=== PATIENT | female | born 1945 | race Caucasian/White ===

== ENCOUNTER 2017-07-05 09:37 | Inpatient (IN) | payer MEDICARE, MEDICAID ==
[~2017-07-05] VITALS: Ht 160 cm; Wt 107.2 kg
[2017-07-05] VITALS (7 sets, daily range): BP systolic 143–187; BP diastolic 82–110; PULSE 83–92; RESP 12–24; O2SAT 95–99
[~2017-07-05 09:37] MED LIST: AMIT25TA26 PO; AMIT25TA9 PO; ATRINH IH; BACL20TA PO; CETI10TA PO; CLAR10T PO; CMBV14.7IN INH; Calcium; FLUOXETINE PO; FURO20TA PO; LISI10TA9 PO; MELA1TAB28 PO; Multi Vitamin PO; NOR10 PO; OMPR20CCR PO; POTA10TA23 PO; VIT A PO; Vitamin D3; [UNRECOGNIZED DRUG - CODE] IH; [UNRECOGNIZED DRUG - OTHER] PO
--- NOTE | 2017-07-05 09:54 | ED.REPORT ---
HPI-Altered Mental Status Date of Service Jul 05, 2017 ED Provider: Timmy Paulino MD The pt is a 72 y/o female with a hx of HTN, COPD and neuropathy who presents to the ED via EMS complaining of confusion, onset this morning. Her caregiver found the pt sliding out of her chair with her pants down to her ankles. She had urinary incontinence, was confused, disoriented and had repetitive speech. The caregiver states the pt was normal yesterday and did not have a fever, cough , diarrhea, or vomiting. Nursing Notes Stated Complaint: CONFUSED Chief Complaint: Neuro Symptoms/ Deficits Nursing Notes Reviewed: Yes Allergies: Coded Allergies: Penicillins (Verified Allergy, Unknown, 12/13/13) Sulfa (Sulfonamide Antibiotics) (Verified Allergy, Unknown, 12/13/13) alendronate sodium (Verified Allergy, Unknown, 12/13/13) betamethasone (Verified Allergy, Unknown, 12/13/13) STATES ALLERGY TO QVAR codeine (Verified Adverse Reaction, Unknown, JITTERY,NON-EFFECTIVE FOR PAIN RELIEF, 08/04/10) Scheduled ([Multi Vitamin]) 1 TAB PO DAILY Albut/Ipratropium-Expunged Drug, Do Not Renew (Combivent-Expunged Drug, Do Not Renew!) 1 Puff Inhaler 2 PUFFS INH QID as needed Calcium Carbonate/Vitamin D3 (Calcium + Vitamin D Tablet) 1 Each Tablet 1 EACH PO DAILY Ipratropium-Expunged Drug, Do Not Renew! (Ipratropium-Expunged Drug, Do Not Renew!) 200 Puff/12.9 Gm Inhaler 2 PUFF IH QID SHAKE WELL Lisinopril (Lisinopril) 20 Mg Tablet 30 MG PO DAILY Meloxicam (Meloxicam) 7.5 Mg Tablet 11.25 MG PO DAILY Nortriptyline (Nortriptyline) 25 Mg Capsule 25 MG PO MORNING Nortriptyline (Nortriptyline) 50 Mg Capsule 50 MG PO HS Nortriptyline (Nortriptyline) 25 Mg Capsule 25 MG PO QPM Potassium Chloride ER (Potassium Chloride ER) 20 Meq Tablet.er 20 MEQ PO MORNING TAKE WITH FOOD Potassium Chloride ER (Klor-Con 10) 10 Meq Tablet 10 MEQ PO HS Torsemide (Torsemide) 20 Mg Tablet 20 MG PO DAILY Vit B Comp/C/FA/Iron/Vit E (Vitamin B Complex Tablet) 1 Each Tablet 1 EACH PO DAILY Scheduled PRN Albuterol-Expunged Drug, Do Not Renew! (Albuterol-Expunged Drug, Do Not Renew!) 60 Puff/8 Gm Inhaler 2 PUFF IH Q4-6H PRN PRN For Congestion Baclofen-Expunged Drug, Do Not Renew! 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 Arrived By: Ambulance Sudden in Onset?: Yes Onset Occurred: 1 - 4 hours ago Symptom Duration: Since onset Severity: Current: No pain currently Severity: Maximum: No pain Recent Healthcare: No recent doctor visit Past Medical History Past Medical History Reports: Asthma, COPD, Hypertension Past Surgical History Reports: Hysterectomy, Tonsillectomy Smoking History Smoker Current Status UNK Social History Alcohol Use: 1-3 per week Drug Use: Denies drug use Other Social History: Lives alone Ambulatory Status Walker Review of Systems Reports: disoriented Reports: repetitive speech Constitutional: Denies: Fever Respiratory: Denies: Non-productive cough GI: Denies: Diarrhea, Vomiting Neurologic: Reports: Confusion Complete sys rev & neg: except as marked. Female: Reports: Incontinence Physical Exam Initial Vital Signs Vital Signs (First) Date Time Temp Pulse Resp B/P Pulse Ox O2 Delivery O2 Flow Rate FiO2 07/05/17 09:49 36.6 92 24 187/103 99 Room Air Initial VS: Reviewed Abdomen / GI: Soft, Non-tender, No guarding, No rebound, No distention Extremities: Vascular intact, Neuro intact, No swelling, No tenderness Skin: Warm, Dry, No cyanosis General/Constitutional: Awake, Cooperative Alertness: Positive: Confused Head / Eyes: Atraumatic, Normocephalic, PERRL, EOMI Neck: Atraumatic, Supple, Full range of motion, No swelling, Non-tender Respiratory / Chest: Atraumatic, Breath sounds NL, Breath sounds = bilat, No respiratory distress, No rales, No rhonchi, No wheezing Cardiovascular: Heart rate NL, Regular rhythm, Heart sounds NL, No gallop, No murmurs, No rubs Lower Ext Edema: Positive: Bilateral 2+ Neurologic: No motor deficits, No sensory deficits Mental Status: Positive: Confused, Disoriented to time No facial droop Moving all extremities equally Subjective decreased sensation in left upper extremity. Ankle / Foot: Atraumatic, Full range of motion, No swelling, No erythema, Non- tender, No deformity, Neurologic intact, Vascular intact Well healed scar on the left medial ankle Interpretation & Diagnostics Lab Results Interpretation Result Diagram: 07/05/17 1006 07/05/17 1006 Test 07/05/17 10:06 07/05/17 10:33 07/05/17 15:00 White Blood Count 13.6th/mm3 (3.8-10.1) Red Blood Count 4.26mil/mm3 (3.90-5.20) Hemoglobin 12.3g/dL (12.0-15.6) Hematocrit 35.9% (35.0-46.0) Mean Corpuscular Volume 84.3fL (81-100) Mean Corpuscular Hemoglobin 28.9pg (27.0-35.0) Mean Corpuscular Hemoglobin Concent 34.3% (32.0-37.0) Red Cell Distribution Width 13.8% (12.3-15.4) Platelet Count 406bil/L (150-400) Neutrophils (%) (Auto) 67.7% (40-74) Lymphocytes (%) (Auto) 26.6% (14-46) Monocytes (%) (Auto) 4.9% (4-12) Eosinophils (%) (Auto) 0.3% (0-5) Basophils (%) (Auto) 0.2% (0-3) Sodium Level 129mEq/L (134-144) Potassium Level 3.7mEq/L (3.5-5.2) Chloride Level 89mEq/L (97-108) Carbon Dioxide Level 27mmol/L (18-29) Blood Urea Nitrogen 8mg/dL (8-27) Creatinine 0.75mg/dL (0.57-1.00) Estimat Glomerular Filtration Rate 109mL/min (>59) Glucose Level 108mg/dL (60-99) Calcium Level 9.6mg/dL (8.5-10.1) Magnesium Level 2.1mg/dL (1.6-2.6) Total Bilirubin 0.4mg/dL (0.0-1.2) Aspartate Amino Transf (AST/SGOT) 20U/L (0-50) Alanine Aminotransferase (ALT/SGPT) 24U/L (0-32) Alkaline Phosphatase 114U/L (25-165) Total Protein 8.2g/dL (6.4-8.4) Albumin 5.0g/dL (3.4-5.0) Salicylates Level < 3.0ug/mL (30-250) Acetaminophen Level < 15.0ug/mL Rx (10-25) Alcohols < 10mg/dL (0-10) Urine Color Straw (YELLOW) Urine Appearance Clear (CLEAR,HAZY) Urine pH 7.0 (5.0-8.0) Urine Specific [place] 1.005 (1.003-1.035) Urine Protein Negativemg/dL (NEG,TRACE) Urine Glucose (UA) Negativemg/dL (NEGATIVE) Urine Ketones Negativemg/dL (NEGATIVE) Urine Occult Blood Negative (NEGATIVE) Urine Nitrite Negative (NEGATIVE) Urine Bilirubin Negative (NEGATIVE) Urine Urobilinogen Normalmg/dL (NORMAL) Urine Leukocyte Esterase Negative (NEGATIVE) Urine RBC 0-2/hpf (0-2) Urine WBC 0-5/hpf (0-5) Urine Epithelial Cells Few/hpf (NONE-MOD) Urine Crystals None seen (NONE SEEN) Urine Bacteria None/hpf (NONE-FEW) Urine Hyaline Casts None/lpf (NONE) Urine Granular Casts None seen (NONE SEEN) Urine Waxy Casts None seen (NONE SEEN) Urine Red Blood Cell Casts None seen (NONE SEEN) Urine White Blood Cell Casts None seen (NONE SEEN) Urine Mucus None seen (None Seen) Urine Trichomonas None seen (NONE SEEN) Urine Yeast None (NONE SEEN) Urinalysis Comment None Urine Culture Reflexed Not indicated ECG Interpretation ECG Interpretation: Normal sinus rhythm. Rate 90. Time: 10:03 Interpreted by: ED physician X-Ray Chest Interpretation Chest Xray Interpretation: IMPRESSION: Left basilar atelectasis. Dictated by: Ray Cook M.D. on 07/05/2017 at 10:38 Approved by: Ray Cook M.D. on 07/05/2017 at 10:39 View: Portable, 1 view Interpretation / Wet Read by: Interpret - Radiologist CT Head Interpretation IMPRESSION: 1. No acute intracranial hemorrhage. 2. Left maxillary retention cyst versus mucosal polyp. Dictated by: Matthew Vila M.D. on 07/05/2017 at 9:56 Approved by: Matthew Vila M.D. on 07/05/2017 at 9:59 Study: Head CT no contrast Interpretation / Wet Read by: Interpret - Radiologist Re-Eval/Medical Decision Med Decision/Clinical Course No discrete cause for the acute delirium is yet discovered though the most likely culprit I believe is some sort of occult infection and given the fact that she has the atelectasis on the chest x-ray and the elevated white count I believe that empiric therapy for pneumonia is the most reasonable course at this time. Source of Hx: Old records Re-Evaluation/Progress : Time of Eval: 14:40 Re-Evaluation/Progress Note: Rechecked pt. Discussed lab results, imaging results,diagnosis and plan to admit. Pt understands and agrees with the plan for admission. All questions addressed. 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 I,, personally performed the history,physical exam and medical decision-making;I reviewed and confirmed the accuracy of the information in the transcribed note. Signed by Debora Weir. 07/05/17 copies to: Justa Yeager MD, Kirk H MD Jul 05, 2017 09:54 Gabriella Campbell Jul 05, 2017 10:02
[2017-07-05 10:09] LABS: BASOPHILS % (AUTO) 0.2 % (0-3); EOSINOPHILS % (AUTO) 0.3 % (0-5); MONOCYTES % (AUTO) 4.9 % (4-12); Mean Corpuscular Hemoglobin 28.9 pg (27.0-35.0); Mean Corpuscular Volume 84.3 fL (81-100); NEUTROPHILS % (AUTO) 67.7 % (40-74); Platelet Count 406 bil/L (150-400)
[2017-07-05 10:30] LABS: Magnesium 2.1 mg/dL (1.6-2.6)
--- NOTE | 2017-07-05 10:41 | DRSVH ---
PROCEDURE: X-RAY CHEST ONE VIEW, PORTABLE ([id number]) INDICATIONS: altered Mental status TECHNIQUE: One view of the chest was acquired. COMPARISON: [facility], , CHEST 1VW (PORTABLE), 03/07/2014, 12:19. FINDINGS: Surgical changes and devices: None. Lungs and pleura: Left basilar opacity may be discoid atelectasis. No pleural effusions or pneumotho rax. Mediastinum: Mediastinal contours appear normal. Heart size is normal. Bones and chest wall: No suspicious bony lesions. Overlying soft tissues appear unremarkable. IMPRESSION: Left basilar atelectasis. Dictated by: Ray Cook M.D. on 07/05/2017 at 10:38 Approved by: Ray Cook M.D. on 07/05/2017 at 10:39
[2017-07-05 10:54] LABS: APPEARANCE,URINE CLEAR (CLEAR,HAZY); COLOR,URINE STRAW (YELLOW); OCCULT BLOOD,URINE NEGATIVE (NEGATIVE); UROBILINOGEN,URINE NORMAL (NORMAL)
--- NOTE | 2017-07-05 11:00 | DRSVH ---
PROCEDURE: CT BRAIN WITHOUT CONTRAST ([id number]) INDICATIONS: Altered mental status TECHNIQUE: Noncontrast 4.5 mm thick angled axial sections acquired from the foramen magnum to the vertex, with c oronal reformats. COMPARISON: None. FINDINGS: Image quality: Diagnostic. Prominent motion artifact within the convexity is noted. Repeat imaging through this region was performed. Brain: There is no acute intra-axial or extra-axial hemorrhage. No extra-axial fluid collection is i dentified. There is no midline shift or mass effect. The orbits are grossly unremarkable. No large areas of diffusely decreased attenuation are evident within the brain to suggest diffuse cer ebral edema. No definite parenchymal abnormality is identified. The ventricles and cortical sulci are age-appropriate. Bones: Calvarium and visualized facial bones are grossly intact. Mucous retention cyst versus a par anasal polyp is evident involving the left maxillary sinus. Otherwise, the imaged paranasal sinuses and mastoid air cells are clear. IMPRESSION: 1. No acute intracranial hemorrhage. 2. Left maxillary retention cyst versus mucosal polyp. Dictated by: Matthew Vila M.D. on 07/05/2017 at 9:56 Approved by: Matthew Vila M.D. on 07/05/2017 at 9:59
[2017-07-05] MEDS ORDERED: POTA10CA42 (13:35)
[2017-07-05] MEDS ORDERED: FLUO20CA25 PO (13:35)
[2017-07-05] MEDS ORDERED: POTA20TA16 (13:35)
[2017-07-05] MEDS ORDERED: NORT25CA (13:35)
[2017-07-05] MEDS ORDERED: MELO-259 (13:35)
[2017-07-05] MEDS ORDERED: BACL20TA (13:35)
[2017-07-05] MEDS ORDERED: TORS20TA3 (13:35)
[2017-07-05] MEDS ORDERED: LISI-567 PO (13:35)
[2017-07-05] MEDS ORDERED: RANI150T11 (13:35)
[2017-07-05] MEDS ORDERED: POTA-62 PO (14:08)
[2017-07-05] MEDS ORDERED: MELO-259 PO (14:08)
[2017-07-05] MEDS ORDERED: NORT50CA PO (14:08)
[2017-07-05] MEDS ORDERED: POTA10TA7 PO (14:08)
[2017-07-05] MEDS ORDERED: CALC-140 PO (14:08)
[2017-07-05] MEDS ORDERED: TORS20TA3 PO (14:08)
[2017-07-05] MEDS ORDERED: VIT1TABL83 PO (14:08)
[2017-07-05] MEDS ORDERED: IBUP200C11 PO (14:08)
[2017-07-05] MEDS ORDERED: NORT25CA PO ×2 (14:08)
[2017-07-05] MEDS ORDERED: cefTRIAXone Inj 2,000 MG in Dextrose 5% Minibag Plus 50 ML IV ONE (14:40)
[2017-07-05] MEDS ORDERED: Azithromycin Inj 500 MG in Dextrose 5% 250 ML IV ONE (14:40)
[2017-07-05] MEDS ORDERED: Ondansetron 2 mg/mL 2 mL Inj IVPUSH PRN ×2 (15:15→16:40)
[2017-07-05] MEDS ORDERED: Alum-Mag Hydrox-Simeth 30 mL Suspension PO PRN ×2 (15:15→16:40)
--- NOTE | 2017-07-05 16:05 | NUR ---
Admission Pt arrived on [facility] from ED. Pt is A/Ox3, no complains of pain, SOB or chest discomfort. Pt able to scoot self from gurney to bedside with minimal assistance. IV Abx infusing at this time. Incontinent of bladder. Pt cleaned and brief in place. Pt has 1:1 sitter at bedside possible fall and altered mental status. Oriented to call light, visiting hours, and bathroom.
[2017-07-05] MEDS ORDERED: 0.9% Sodium Chloride 1,000 ML IV SCH (16:36)
[2017-07-05] MEDS ORDERED: [UNRECOGNIZED DRUG - REMARK] PO PRN (16:40)
[2017-07-05] MEDS ORDERED: Polyethylene Glycol (PEG) 17 Gm Powder PO PRN (16:40)
[2017-07-05] MEDS: Calcium Carbonate (Oyster Shell) 500 mg Tablet PO SCH (17:30)
--- NOTE | 2017-07-05 18:26 | PCM.HPMED ---
Subjective Date of Service Jul 05, 2017 Primary Provider: Admitting Physician: Jesus Gil MD Primary Care Physician: Justa Yeager MD Attending Physician: Jesus Gil MD Admit Status: From the Emergency Department, 23-Hour Observation Chief Complaint: Altered mental status/2 hrs Lightheadedness/2hrs History of Present Illness: 72-year-old lady with past medical history of depression, hypertension,GERD, obesity was brought in by EMS due to brief altered mental status. Patient was found by her caregiver 9am slammed over the floor. She called 911 and was brought in to ED. patient reportedly was alert but slightly confused. Was able to answer her dog is okay. Patient now alert and oriented x3 . She states she had felt lightheadedness this morning and remembers falling down. She states she did not lose consciousness fully . She remembers her caregiver coming to her place. She denies recent flareup. She denies any urinary or bowel habit change. Denies fever. Denies cough ED course : Unremarkable exam and vitals. wbc 13.6. Sodium 129. Otherwise unremarkable. CT brain negative. Review of Systems: Comprehensive review of systems performed, pertinent positives and negatives included in history of present illness Allergies Coded Allergies: Penicillins (Verified Allergy, Unknown, 12/13/13) Sulfa (Sulfonamide Antibiotics) (Verified Allergy, Unknown, 12/13/13) alendronate sodium (Verified Allergy, Unknown, 12/13/13) betamethasone (Verified Allergy, Unknown, 12/13/13) STATES ALLERGY TO QVAR codeine (Verified Adverse Reaction, Unknown, JITTERY,NON-EFFECTIVE FOR PAIN RELIEF, 08/04/10) Home Medications [Multi Vitamin]) 1 TAB PO DAILY Albut/Ipratropium-Expunged Drug, Do Not Renew (Combivent-Expunged Drug, Do Not Renew!) 1 Puff Inhaler 2 PUFFS INH QID as needed Calcium Carbonate/Vitamin D3 (Calcium + Vitamin D Tablet) 1 Each Tablet 1 EACH PO DAILY Ipratropium-Expunged Drug, Do Not Renew! (Ipratropium-Expunged Drug, Do Not Renew!) 200 Puff/12.9 Gm Inhaler 2 PUFF IH QID SHAKE WELL Lisinopril (Lisinopril) 20 Mg Tablet 30 MG PO DAILY Meloxicam (Meloxicam) 7.5 Mg Tablet 11.25 MG PO DAILY Nortriptyline (Nortriptyline) 25 Mg Capsule 25 MG PO MORNING Nortriptyline (Nortriptyline) 50 Mg Capsule 50 MG PO HS Nortriptyline (Nortriptyline) 25 Mg Capsule 25 MG PO QPM Potassium Chloride ER (Potassium Chloride ER) 20 Meq Tablet.er 20 MEQ PO MORNING TAKE WITH FOOD Potassium Chloride ER (Klor-Con 10) 10 Meq Tablet 10 MEQ PO HS Torsemide (Torsemide) 20 Mg Tablet 20 MG PO DAILY Vit B Comp/C/FA/Iron/Vit E (Vitamin B Complex Tablet) 1 Each Tablet 1 EACH PO DAILY Scheduled PRN Albuterol-Expunged Drug, Do Not Renew! (Albuterol-Expunged Drug, Do Not Renew!) 60 Puff/8 Gm Inhaler 2 PUFF IH Q4-6H PRN PRN For Congestion Baclofen-Expunged Drug, Do Not Renew! (Baclofen-Expunged Drug, Do Not Renew!) 20 Mg Tablet 20 MG PO QID PRN PRN For Spasm Ibuprofen (Advil) 200 Mg Capsule 200 MG PO Q4H PRN PRN For Pain PMH depression, hypertension, GERD, obesity Current smoker Surgical History Tonsillectomy Hysterectomy Family History Reviewed and unremarkable. Thai ancestors Social History Hx Alcohol Use: Yes (1x/week) Hx Substance Use: No Hx Tobacco Use: Yes (1/2 pack/day, 96 pack year) Smoking Status: Smoker Current Status UNK Exam Vital Signs Vital Sign - Last Date Time Temp Pulse Resp B/P Pulse Ox O2 Delivery O2 Flow Rate FiO2 07/05/17 16:10 36.4 84 18 158/98 95 Room Air Exam Gen. patient is lying comfortably in hospital bed HEENT: Head is normocephalic atraumatic, Pupils equal and reactive, extraocular movements intact, Lungs clear to auscultation bilaterally Heart regular rate and rhythm without murmurs gallops or rubs Abdomen soft nontender without hepatosplenomegaly Extremities pulses are present dorsalis pedis posterior tibialis and radial. tSkin is warm and dry there are no rashes, Psych alert and oriented to person place and time Neuro cranial nerves II through XII are grossly intact Lymph: There is no lymphadenopathy appreciated in the cervical supra infraclavicular regions : no valerio Lab and Diagnostics Result Diagram: 07/05/17 1006 07/05/17 1006 X-Rays, CTs and MRIs PROCEDURE: CT BRAIN WITHOUT CONTRAST ([id number]) INDICATIONS: Altered mental status TECHNIQUE: Noncontrast 4.5 mm thick angled axial sections acquired from the foramen magnum to the vertex, with coronal reformats. COMPARISON: None. FINDINGS: Image quality: Diagnostic. Prominent motion artifact within the convexity is noted. Repeat imaging through this region was performed. Brain: There is no acute intra-axial or extra-axial hemorrhage. No extra-axial fluid collection is identified. There is no midline shift or mass effect. The orbits are grossly unremarkable. No large areas of diffusely decreased attenuation are evident within the brain to suggest diffuse cerebral edema. No definite parenchymal abnormality is identified. The ventricles and cortical sulci are age-appropriate. Bones: Calvarium and visualized facial bones are grossly intact. Mucous retention cyst versus a paranasal polyp is evident involving the left maxillary sinus. Otherwise, the imaged paranasal sinuses and mastoid air cells are clear. IMPRESSION: 1. No acute intracranial hemorrhage. 2. Left maxillary retention cyst versus mucosal polyp. Dictated by: aMtthew Vila M.D. on 07/05/2017 at 9:56 Assessment & Plan 72-year-old lady with past medical history of depression, hypertension,GERD, obesity was brought in by EMS due to brief altered mental status. # Altered mental status, acute, ,poa, resolved -Due to TIA vs symptomatic hyponatremia vs syncope due to dehydration due to diuretics -hold SSRI -NS at 100ml/h -MR stroke protocol,echo, -telemetry,PT/OT -Urinalysis unremarkable # symptomatic hyponatremia, chronicity unknown -due to SSRI vs diuretics -Hold fluoxetine and torsemide -urine studies ordered #Depression, stable #Hypertension, stable #Obesity, stable inpatient Full code per patient Pain Evaluation: Adequate Pain Control Resuscitation Status: CPR: Attempt Resuscitation copies to: Justa Yeager MD, Melaku MD Jul 05, 2017 18:26
--- NOTE | 2017-07-05 21:13 | NUR ---
off unit: off unit for MRI
--- NOTE | 2017-07-05 21:54 | DRSVH ---
PROCEDURE: MRI BRAIN WITHOUT CONTRAST ([id number]) INDICATIONS: TIA TECHNIQUE: Non-contrast axial T1 spin echo, axial T2 fast spin echo, sagittal and axial FLAIR, coronal T2 fast s pin echo, axial gradient echo, axial diffusion and ADC through the brain. COMPARISON: [facility], CT, CT BRAIN WO CON, 07/05/2017, 10:34. FINDINGS: Image quality: Motion is present on multiple sequences, limiting areas of fine detail evaluation. CSF spaces: Ventricles appear symmetric in size and shape. Basal cisterns are patent. No extra-axi al fluid collections. Brain: No intracranial bleeds or mass effects. There is cerebral volume loss for age. There are pe riventricular and deep white matter chronic small vessel ischemic changes. Brainstem appears normal. Diffusion-weighted images show no acute ischemic insults. No chronic ischemic insults. Normal int ravascular flow voids are present. Skull and face: Calvarial bone marrow is normal in signal. Orbits are normal. Sinuses: Sinuses demonstrate a prominent left maxillary sinus mucus retention cysts. Mild to moderat e scattered mucosal thickening is present within the visualized remaining sinuses. IMPRESSION: 1. No acute intracranial process. 2. Moderate atrophy and chronic microvascular ischemic changes. Dictated by: Melonie Dunn M.D. on 07/05/2017 at 21:51 Approved by: Melonie Dunn M.D. on 07/05/2017 at 21:52
[2017-07-05] MEDS ORDERED: BACL20TA PO (22:05)
--- NOTE | 2017-07-05 22:12 | DRSVH ---
PROCEDURE: MRA ANGIOGRAM HEAD WITHOUT CONTRAST ([id number]) INDICATIONS: TIA TECHNIQUE: Noncontrast axial 3-D [id number] MR angiogram, with 3-dimensional maximum intensity projection (M IP) reformats of the internal carotid arteries and posterior circulation then performed. COMPARISON: None. FINDINGS: Image quality: Excellent. Anterior circulation: Intracranial internal carotid arteries demonstrate normal size and intralumina l flow signal. The flow within the paired anterior cerebral arteries is normal and symmetric. The f low within the middle cerebral arteries is normal and symmetric. The anterior communicating artery i s seen. No stenoses, occlusions, or aneurysms. Posterior circulation: Visualized portions of the vertebral arteries demonstrate normal caliber, and join to form a normal appearing basilar artery. The flow within the posterior cerebral arteries is normal and symmetric. No stenoses, occlusions, or aneurysms. IMPRESSION: 1. No areas of hemodynamically significant stenosis, vascular occlusion or aneurysmal dilation within the anterior circulation. 2. No areas of hemodynamically significant stenosis, vascular occlusion or aneurysmal dilation within the posterior circulation. Dictated by: Melonie Dunn M.D. on 07/05/2017 at 22:09 Approved by: Melonie Dunn M.D. on 07/05/2017 at 22:10
[2017-07-06 05:13] VITALS: BP 147/87; PULSE 86; RESP 14; O2SAT 95
[2017-07-06 06:12] VITALS: PULSE 86
[2017-07-06 06:13] LABS: BASOPHILS % (AUTO) 0.2 % (0-3); EOSINOPHILS % (AUTO) 2.3 % (0-5); MONOCYTES % (AUTO) 6.7 % (4-12); Mean Corpuscular Hemoglobin 28.4 pg (27.0-35.0); NEUTROPHILS % (AUTO) 54.4 % (40-74); Platelet Count 327 bil/L (150-400)
[2017-07-06 06:29] LABS: Magnesium 2.1 mg/dL (1.6-2.6)
[2017-07-06] MEDS ORDERED: CALC500T9 PO (07:53)
[2017-07-06] MEDS ORDERED: ALBU8.5H2 INHALATION (07:54)
[2017-07-06] MEDS ORDERED: MULT-1065 PO (07:54)
[2017-07-06 08:00] VITALS: PULSE 90
[2017-07-06] MEDS: Calcium Carbonate (Oyster Shell) 500 mg Tablet PO SCH ×3 (08:36→16:45)
[2017-07-06] MEDS: Multivit-Miner-Folic Acid-Iron Tablet PO SCH (08:37)
[2017-07-06 09:13] LABS: OSMOLALITY, URINE 219 mOs/kH2O (250-1200)
--- NOTE | 2017-07-06 12:14 | NUR ---
Flu vaccine Flu vaccine offered, pt respectfully declined. sts "I was sick for 2 weeks last time I got it. I want to get better and out of here before I get it this year" Encouraged pt to complete once she is out of the hospital, pt verbally agreed. Call light in reach,
--- NOTE | 2017-07-06 12:19 | PCM.PNMED ---
Subjective Date of Service Jul 06, 2017 Subjective Alert and oriented 3. No lightheadedness. Sodium improving. Exam Vital Signs Vital Sign - Last Date Time Temp Pulse Resp B/P Pulse Ox O2 Delivery O2 Flow Rate FiO2 07/06/17 08:00 90 07/06/17 05:13 36.4 14 147/87 95 Room Air Intake and Output 07/05/17 07/05/17 07/06/17 Cumulative From/Thru 15:00 23:00 07:00 07/05/17 09:49 - 07/06/17 06:39 Intake Total 300 ml 1036 ml 1336 ml Output Total 350 ml 700 ml 1050 ml Balance -50 ml 336 ml 286 ml Intake Oral 300 ml 1036 ml 1336 ml Output Urine Total 350 ml 700 ml 1050 ml # Bowel Movements 0 0 Exam Gen. patient is lying comfortably in hospital bed HEENT: Head is normocephalic atraumatic, Pupils equal and reactive, extraocular movements intact, Lungs clear to auscultation bilaterally Heart regular rate and rhythm without murmurs gallops or rubs Abdomen soft nontender without hepatosplenomegaly Extremities pulses are present dorsalis pedis posterior tibialis and radial. tSkin is warm and dry there are no rashes, Psych alert and oriented to person place and time Neuro cranial nerves II through XII are grossly intact Lymph: There is no lymphadenopathy appreciated in the cervical supra infraclavicular regions : no valerio IVs and Medications Medications Reviewed: Medications were reviewed in detail Lab and Diagnostics Result Diagram: 07/06/17 0510 07/06/17 0510 X-Rays, CTs and MRIs PROCEDURE: CT BRAIN WITHOUT CONTRAST ([id number]) INDICATIONS: Altered mental status IMPRESSION: 1. No acute intracranial hemorrhage. 2. Left maxillary retention cyst versus mucosal polyp. Dictated by: Matthew Vila M.D. on 07/05/2017 at 9:56 PROCEDURE: MRI BRAIN WITHOUT CONTRAST ([id number]) INDICATIONS: TIA IMPRESSION: 1. No acute intracranial process. 2. Moderate atrophy and chronic microvascular ischemic changes. Dictated by: Melonie Dunn M.D. on 07/05/2017 at 21:51 PROCEDURE: MRA ANGIOGRAM HEAD WITHOUT CONTRAST ([id number]) INDICATIONS: TIA IMPRESSION: 1. No areas of hemodynamically significant stenosis, vascular occlusion or aneurysmal dilation within the anterior circulation. 2. No areas of hemodynamically significant stenosis, vascular occlusion or aneurysmal dilation within the posterior circulation. Dictated by: Melonie Dunn M.D. on 07/05/2017 at 22:09 Cardiac Echo Impressions The left ventricle is normal in size.The ejection fraction is estimated to be 65-70%. There is no LV thrombus. The right ventricle is normal in size and function. There is mild mitral regurgitation. Compared to the prior echo study, there has been an increase in the severity of mitral regurgitation. There is mild tricuspid regurgitation. Compared to the prior echo exam, there has been no change in TR severity. The right ventricular systolic pressure is estimated at 33 mmHg assuming a right atrial pressure of 8 mm Hg. The aortic arch not well visualized. Assessment & Plan 72-year-old lady with past medical history of depression, hypertension,GERD, obesity was brought in by EMS due to brief altered mental status. # Altered mental status, acute, ,poa, resolved -Due to TIA vs symptomatic hyponatremia vs syncope due to dehydration due to diuretics.TIA unlikely -Initial Na 129, improved to 132 today. -hold SSRI and torsemide -Patient has been taking fluoxetine for 2 years and torsemide for 1 year. Patient not sure of indication for torsemide. No history of CHF per patient.Echo unremarkable with EF 65-70%. Patient already on nortriptyline for depression. Discontinue fluoxetine and torsemide for now.moreover combination of fluoxetine and nortriptyline may cause significant QT prolongation and dysrhythmia per pharmacist -Treated with NS at 100ml/h -MR stroke protocol unremarkable -telemetry,PT/OT -Urinalysis unremarkable -Started aspirin 81 mg daily # symptomatic hyponatremia, chronicity unknown -due to SSRI vs diuretics -Discontinued fluoxetine and torsemide. #Depression, stable -Continue nortriptyline. Discontinued fluoxetine. #Hypertension, stable -Continue lisinopril. Discontinue torsemide and kcl #Obesity, stable inpatient Full code per patient Discharge tomorrow if continues to improve Resuscitation Status: CPR: Attempt Resuscitation Jesus Gil MD Jul 06, 2017 12:19
[2017-07-06 12:24] VITALS: BP 135/75; PULSE 76; RESP 16; O2SAT 94
--- NOTE | 2017-07-06 12:27 | DRSVH ---
[facility] [address] [facility] [place] [address] Echocardiogram Report Name: SACHIN GE TStudy Date: 0 07/06/2017Height: 63 in Hospital Exam Location: [facility] Weight: 236 lb Gender: Female BSA: 2.1 m2 : 1945 Age: 72 yrs BP: 147/87 mmHg Reason For Study: TIA Ordering Physician: Obdulio Garduno Performed By: Jon Hardin Referring Physician: Justa Yeager Interpretation Summary The left ventricle is normal in size.The ejection fraction is estimated to be 65-70%. There is no LV thrombus. The right ventricle is normal in size and function. There is mild mitral regurgitation. Compared to the prior echo study, there has been an increase in the severity of mitral regurgitation. There is mild tricuspid regurgitation. Compared to the prior echo exam, there has been no change in TR severity. The right ventricular systolic pressure is estimated at 33 mmHg assuming a right atrial pressure of 8 mm Hg. The aortic arch not well visualized. Procedure: A two-dimensional transthoracic echocardiogram with color flow and Doppler was performed. The study quality was technically adequate. Comparison is made with the echocardiogram of 08/25/16. The patient was in normal sinus rhythm during the exam. Left Ventricle: The left ventricle is normal in size. Proximal septal thickening is noted. There is no echo evidence for significant left ventricular outflow tract obstruction. There is no thrombus. The ejection fraction is estimated to be 65-70%. There are no focal wall motion abnormalities. Assessment of diastolic parameters indicates a relaxation abnormality of the left ventricle, consistent with normal filling pressures. Right Ventricle: The right ventricle is normal in size and function. Atria: The left atrium is moderately dilated. The left atrium has significantly increased in size since the prior echo exam. Right atrial size is normal. A prominent eustachian valve is noted. The interatrial septum is intact with no evidence for an atrial septal defect. Lipomatous hypertrophy of the interatrial septum is noted. Mitral Valve: There is mild mitral annular calcification. The mitral valve leaflets are slightly calcified. There is mild mitral regurgitation. Compared to the prior echo study, there has been an increase in the severity of mitral regurgitation. Aortic Valve: The aortic valve is trileaflet. The aortic valve opens well. There is no aortic valve stenosis. No aortic regurgitation is present. Tricuspid Valve: The tricuspid valve is normal. There is mild tricuspid regurgitation. The right ventricular systolic pressure is estimated at 33 mmHg assuming a right atrial pressure of 8 mm Hg. Compared to the prior echo exam, there has been no change in TR severity. Pulmonic Valve: The pulmonic valve is normal in structure and function. There is trace pulmonic regurgitation. Great Vessels: The aortic root is normal size. The ascending aorta is mildly enlarged. The aortic arch not well visualized. The pulmonary artery is normal size. The IVC is of normal diameter and collapses less than 50% with a sniff. This suggests a right atrial pressure of 8 mm Hg. Pericardium/ Pleura There is no pericardial effusion. There is no pleural effusion. MMode/2D Measurements & Calculations LVIDd: 5.3 cm LA dimension: 4.2 cm LVIDs: 2.8 cm FS: 46.2 % LA A2 area: 26.7 cm EPSS: 0.83 cm LA A4 area: 25.4 cm IVSd: 1.2 cm LA length (vol): 6.0 cm LVPWd: 1.1 cm LA vol: 95.1 ml LA vol index: 45.8 ml/m IVC diam: 2.1 cm RA long axis: 4.8 cm Ao root diam: 3.4 cm RA area: 16.8 cm Aortic Jxn: 2.5 cm RA vol: 49.7 ml asc Aorta Diam: 3.7 cm RA : 24.0 ml/m2 LV harrison. diameter/BSA (cm/m^2): 2.5 LV sys. diameter/BSA (cm/m^2): 1.4 Doppler Measurements & Calculations Ao V2 max: 172.8 cm/sec MV E max zackary: 117.9 cm/sec Ao max P.9 mmHg MV A max zackary: 1.8 cm/sec Ao mean P.0 mmHg MV E/A: 66.4 TR max zackary: 248.4 cm/sec Med Peak E' Zackary: 7.8 cm/sec TR max P.7 mmHg E/E' med: 15.0 PA V2 max: 104.3 cm/sec PA mean P.6 mmHg PA Accel Time: 0.11 sec MV dec time: 0.11 sec Ao V2 mean: 127.5 cm/sec Ao V2 VTI: 33.9 cm PA V2 mean: 78.4 cm/sec PA pr(Accel): 31.6 mmHg Reading Physician:PM
[2017-07-06 13:31] LABS: APPEARANCE,URINE HAZY (CLEAR,HAZY); COLOR,URINE STRAW (YELLOW); OCCULT BLOOD,URINE NEGATIVE (NEGATIVE); UROBILINOGEN,URINE NORMAL (NORMAL)
--- NOTE | 2017-07-06 15:55 | NUR ---
Social Work-initial assessment/multidisciplinary rounds: Data:See initial assessment. Pt is a 72 y/o male who was admitted on 07/05/17 for acute delirium per H&P. Pt's insurance is [facility] and [facility] and PCP is CHELE Deluna. EMR reviewed. Pt's readmission score is 4-high risk. GENIE met with pt at bedside to discuss discharge planning, SW role explained. Pt is alert and oriented x3. Pt resides at home alone in a mobile home with 4 steps to enter where she remains independent with basic ADls. Pt does not drive and uses a fww when out in the community. Pt has no HH history, but has been to [facility] before. Pt has no longterm care insurance or VA benefits. SW discussed DPOA/advanced directive paperwork, pt has completed this, SW encouraged a copy to be brought in. Pt has [employer]AD[employer] caregivers 4 days a week and her CM is Dania Ramirez, updated clinicals faxed. Pt states her friend Ivette [phone] will likely provide transport home. SW provided pt with discharge planning checklist and encouraged pt to call with any questions, phone number provided. No MD orders have been received. SW will continue to follow. Assessment:Pt who has caregivers at home. Plan:Anticipate to discharge home when medically stable via POV. Pt has JADEN caregivers at home. No MD orders have been received. GENIE will continue to follow. ROB Almeida Addendum: 07/06/17 at 1605 by ADRIEL CHAVARRIA Amended: Links added.
[2017-07-06 16:43] VITALS: BP 145/92; PULSE 94; RESP 17; O2SAT 96
--- NOTE | 2017-07-06 17:37 | NUR ---
Activity Pt has been 1 per assist to BR, encouraged to get up to chair for meals. Pt has been up to the chair for dinner. Pt encouraged to continue to contact staff for assistance when getting out of bed. Educated about importance of activity with regards to circulation and respiratory function. Pt verbalizes understanding, states will try to be up for all meals. Call light in reach, will continue to monitor
[2017-07-06 21:01] VITALS: BP 175/95; PULSE 91; RESP 16; O2SAT 98
[2017-07-07 00:51] VITALS: BP 126/83; PULSE 95; RESP 16; O2SAT 95
[2017-07-07 04:56] VITALS: BP 135/90; PULSE 102; RESP 16; O2SAT 97
[2017-07-07 05:11] VITALS: PULSE 94
[2017-07-07 08:00] VITALS: PULSE 65
[2017-07-07] MEDS: Calcium Carbonate (Oyster Shell) 500 mg Tablet PO SCH ×2 (08:34→11:49)
[2017-07-07] MEDS: Multivit-Miner-Folic Acid-Iron Tablet PO SCH (08:35)
[2017-07-07 09:01] VITALS: PULSE 97
[2017-07-07 09:21] VITALS: BP 153/87; PULSE 101; RESP 16; O2SAT 97
--- NOTE | 2017-07-07 10:48 | PCM.DIMED ---
Discharge Instructions Date of Service Jul 07, 2017 Dates of Hospitalization Jul 05, 2017 at 15:29 Discharge Diagnosis Discharge Diagnosis # Altered mental status, acute, ,poa, resolved -Due to syncope due to dehydration due to diuretics. # hyponatremia, chronicity unknown -due to SSRI vs diuretics #Depression, stable #Hypertension, stable #Obesity, stable Diet Discharge Diet: Low fat, Low Sodium Activity Discharge Activity: Limited until seen by PCP Call your provider Call your provider for: Fever or Chills, Shortness of breath, Bleeding, Chest pain, Vomitting, Excessive diarrhea, Weakness (unilateral) Patient Instructions Patient Instructions # You were hospitalized due to altered mental status. It seems you fainted due to dehydration secondary to diuretics. I have stopped your torsemide and potassium supplement. Echocardiogram done did not show any heart failure. you do not need to take torsemide daily. You can take torsemide 20 mg by mouth together with potassium chloride 10meq as needed when you have leg swelling. Follow-up Provider: Justa Yeager MD Follow-up with PCP in: 1 week Jesus Gil MD Jul 07, 2017 10:48
[2017-07-07] MEDS ORDERED: TORS20TA3 PO (11:00)
[2017-07-07] MEDS ORDERED: POTA-62 PO (11:00)
[2017-07-07] MEDS ORDERED: ASPI81TA3 PO (11:00)
--- NOTE | 2017-07-07 14:13 | NUR ---
Discharge Patient discharged at 1355, off unit in wheelchair accompanied by attending DONATIONS ATTENDANT, released in lobby to patient's friend, ambulatory with walker. Vital signs stable, alert and oriented x4, denies pain and in no apparent distress. IV dc'd, all belongings returned and accompany patient. All instructions for diet, activity, medications, prescriptions and follow-up reviewed with patient who reports understanding.
--- NOTE | 2017-07-07 14:48 | NUR ---
Social Work: Multidisciplinary Rounds / Discharge Data & Assessment: EMR reviewed. Patient is on day 2 of hospitalization for acute delirium and CAP per H&P. Patient was discussed in morning rounds. No concerns were noted by MD or staff. Patient has been deemed medically stable for discharge today per MD. Patient will discharge home today. Transportation will be arranged by patient. Patient will have no discharge needs. Plan: Patient will discharge home today. Transportation will be arranged by patient. Patient will have no needs at discharge. ROB Redd
--- NOTE | 2017-07-07 17:08 | PCM.DC.MED ---
Discharge Summary Date of Service Jul 07, 2017 Dates of Hospitalization Date of Hospital Admission Jul 05, 2017 at 15:29 Date of Discharge: Jul 07, 2017 Providers: Admitting Physician: Jesus Hollingsworth MD Primary Care Physician: Justa Yeager MD Attending Physician: Jesus Hollingsworth MD Diagnosis at Time of Discharge Diagnosis at Time of Discharge # Altered mental status, acute, ,poa, resolved -Due to syncope due to dehydration due to diuretics. # hyponatremia, chronicity unknown -due to SSRI vs diuretics #Depression, stable #Hypertension, stable #Obesity, stable Procedures XRay, CTs & MRIs PROCEDURE: CT BRAIN WITHOUT CONTRAST ([id number]) INDICATIONS: Altered mental status IMPRESSION: 1. No acute intracranial hemorrhage. 2. Left maxillary retention cyst versus mucosal polyp. Dictated by: Matthew Vila M.D. on 07/05/2017 at 9:56 PROCEDURE: MRI BRAIN WITHOUT CONTRAST ([id number]) INDICATIONS: TIA IMPRESSION: 1. No acute intracranial process. 2. Moderate atrophy and chronic microvascular ischemic changes. Dictated by: Melonie Dunn M.D. on 07/05/2017 at 21:51 PROCEDURE: MRA ANGIOGRAM HEAD WITHOUT CONTRAST ([id number]) INDICATIONS: TIA IMPRESSION: 1. No areas of hemodynamically significant stenosis, vascular occlusion or aneurysmal dilation within the anterior circulation. 2. No areas of hemodynamically significant stenosis, vascular occlusion or aneurysmal dilation within the posterior circulation. Dictated by: Melonie Dunn M.D. on 07/05/2017 at 22:09 Cardiac Echo Impression The left ventricle is normal in size.The ejection fraction is estimated to be 65-70%. There is no LV thrombus. The right ventricle is normal in size and function. There is mild mitral regurgitation. Compared to the prior echo study, there has been an increase in the severity of mitral regurgitation. There is mild tricuspid regurgitation. Compared to the prior echo exam, there has been no change in TR severity. The right ventricular systolic pressure is estimated at 33 mmHg assuming a right atrial pressure of 8 mm Hg. The aortic arch not well visualized. Brief History per HPI 72-year-old lady with past medical history of depression, hypertension,GERD, obesity was brought in by EMS due to brief altered mental status. Patient was found by her caregiver 9am slammed over the floor. She called 911 and was brought in to ED. patient reportedly was alert but slightly confused. Was able to answer her dog is okay. Patient now alert and oriented x3 . She states she had felt lightheadedness this morning and remembers falling down. She states she did not lose consciousness fully . She remembers her caregiver coming to her place. She denies recent flareup. She denies any urinary or bowel habit change. Denies fever. Denies cough ED course : Unremarkable exam and vitals. wbc 13.6. Sodium 129. Otherwise unremarkable. CT brain negative. Hospital Course 72-year-old lady with past medical history of depression, hypertension,GERD, obesity was brought in by EMS due to brief altered mental status. # Altered mental status , acute, ,poa, resolved -encephalopathy due to symptomatic hyponatremia vs encephalopathy of unknown etiology vs postsyncope state due to dehydration due to diuretics.TIA unlikely -Initial Na 129, improved to 132 today. -initially held SSRI and torsemide . Patient has been taking fluoxetine for 2 years and torsemide for 1 year. Patient says indication for torsemide is leg swelling. no much leg swelling now. No history of CHF per patient.Echo unremarkable with EF 65-70% on current hospitalization. -Na improved with fluid rapidly,unlikely due to SAIDH due to SSRI .patient states fluoxetine improved her mood very much when it was started . will continue flouxetine .will discontinue torsemide daily but to take on as needed basis .together with kcl -Treated with NS at 100ml/h -MR stroke protocol unremarkable -telemetry unremarkable -Urinalysis unremarkable -Started aspirin 81 mg daily # hyponatremia, chronicity unknown -due to SSRI vs diuretics -Discontinued torsemide and switched to prn . resumed floxetine given unlikely contributing to her symptoms and patient reluctant to stop it ( she states it helped very much with her mood ) #Depression, stable -Continue nortriptyline and fluoxetine. #Hypertension, stable -Continue lisinopril. Discontinue torsemide and kcl #Obesity, stable inpatient Full code per patient Discharge home Exam Vital Signs (Last) Date Time Temp Pulse Resp B/P Pulse Ox O2 Delivery O2 Flow Rate FiO2 07/07/17 09:21 36.6 101 16 153/87 97 Room Air Exam Gen. patient is lying comfortably in hospital bed HEENT: Head is normocephalic atraumatic, Pupils equal and reactive, extraocular movements intact, Lungs clear to auscultation bilaterally Heart regular rate and rhythm without murmurs gallops or rubs Abdomen soft nontender without hepatosplenomegaly Extremities pulses are present dorsalis pedis posterior tibialis and radial. tSkin is warm and dry there are no rashes, Psych alert and oriented to person place and time Neuro cranial nerves II through XII are grossly intact Lymph: There is no lymphadenopathy appreciated in the cervical supra infraclavicular regions : no valerio Test 07/05/17 10:06 07/05/17 10:33 07/05/17 15:00 07/06/17 05:10 Osmolality 280 (275-300) Thyroid Stimulating Hormone (TSH) 2.010uIU/mL (0.450-4.500) Free Thyroxine 0.88ng/dL (0.82-1.77) Salicylates Level < 3.0ug/mL (30-250) Acetaminophen Level < 15.0ug/mL Rx (10-25) Alcohols < 10mg/dL (0-10) Urine Osmolality 219mOs/kH2O (250-1200) Urine Random Creatinine 40mg/dL (15-278) Urine Random Sodium 30mEq/L Urine Random Chloride 17mEq/L Lactic Acid Level 0.9mmol/L (0.4-2.0) White Blood Count 8.9th/mm3 (3.8-10.1) Red Blood Count 3.66mil/mm3 (3.90-5.20) Hemoglobin 10.4g/dL (12.0-15.6) Hematocrit 31.1% (35.0-46.0) Mean Corpuscular Volume 85.0fL (81-100) Mean Corpuscular Hemoglobin 28.4pg (27.0-35.0) Mean Corpuscular Hemoglobin Concent 33.4% (32.0-37.0) Red Cell Distribution Width 14.1% (12.3-15.4) Platelet Count 327bil/L (150-400) Neutrophils (%) (Auto) 54.4% (40-74) Lymphocytes (%) (Auto) 36.2% (14-46) Monocytes (%) (Auto) 6.7% (4-12) Eosinophils (%) (Auto) 2.3% (0-5) Basophils (%) (Auto) 0.2% (0-3) Sodium Level 132mEq/L (134-144) Potassium Level 3.8mEq/L (3.5-5.2) Chloride Level 96mEq/L (97-108) Carbon Dioxide Level 25mmol/L (18-29) Blood Urea Nitrogen 8mg/dL (8-27) Creatinine 0.58mg/dL (0.57-1.00) Estimat Glomerular Filtration Rate 147mL/min (>59) Glucose Level 100mg/dL (60-99) Calcium Level 8.7mg/dL (8.5-10.1) Magnesium Level 2.1mg/dL (1.6-2.6) Total Bilirubin 0.3mg/dL (0.0-1.2) Aspartate Amino Transf (AST/SGOT) 18U/L (0-50) Alanine Aminotransferase (ALT/SGPT) 19U/L (0-32) Alkaline Phosphatase 88U/L (25-165) Total Protein 5.8g/dL (6.4-8.4) Albumin 3.8g/dL (3.4-5.0) Procalcitonin 0.02ng/mL (0.00-0.08) Test 07/06/17 11:03 Urine Color Straw (YELLOW) Urine Appearance Hazy (CLEAR,HAZY) Urine pH 7.0 (5.0-8.0) Urine Specific [place] 1.010 (1.003-1.035) Urine Protein Negativemg/dL (NEG,TRACE) Urine Glucose (UA) Negativemg/dL (NEGATIVE) Urine Ketones Negativemg/dL (NEGATIVE) Urine Occult Blood Negative (NEGATIVE) Urine Nitrite Negative (NEGATIVE) Urine Bilirubin Negative (NEGATIVE) Urine Urobilinogen Normalmg/dL (NORMAL) Urine Leukocyte Esterase Negative (NEGATIVE) Urine RBC 0-2/hpf (0-2) Urine WBC 0-5/hpf (0-5) Urine Epithelial Cells Occasional/hpf (NONE-MOD) Urine Crystals None seen (NONE SEEN) Urine Bacteria Few/hpf (NONE-FEW) Urine Hyaline Casts None/lpf (NONE) Urine Granular Casts None seen (NONE SEEN) Urine Waxy Casts None seen (NONE SEEN) Urine Red Blood Cell Casts None seen (NONE SEEN) Urine White Blood Cell Casts None seen (NONE SEEN) Urine Mucus None seen (None Seen) Urine Trichomonas None seen (NONE SEEN) Urine Yeast None (NONE SEEN) Urinalysis Comment None Urine Culture Reflexed Not indicated Discharge Medications Discharge Medications Aspirin Chew (Aspirin Chew) 81 Mg Chew 81 MG PO DAILY Prescribed by: JESUS HOLLINGSWORTH MD Calcium Carbonate/Vitamin D3 (Calcium + Vitamin D Tablet) 1 Each Tablet 1 EACH PO DAILY (Reported) Fluoxetine (Fluoxetine) 20 Mg Capsule 20 MG PO DAILY (Reported) Lisinopril (Lisinopril) 20 Mg Tablet 30 MG PO DAILY (Reported) Meloxicam (Meloxicam) 7.5 Mg Tablet 11.25 MG PO DAILY (Reported) Multivits-Min/Iron/FA/Lutein (Centrum Silver Women Tablet) 8 Mg Iron-400 Mcg- 300 Mcg Tablet 1 EACH PO DAILY (Reported) Nortriptyline (Nortriptyline) 25 Mg Capsule 25 MG PO MORNING (Reported) Nortriptyline (Nortriptyline) 50 Mg Capsule 50 MG PO HS (Reported) Nortriptyline (Nortriptyline) 25 Mg Capsule 25 MG PO QPM (Reported) Potassium Chloride ER (Klor-Con 10) 10 Meq Tablet 10 MEQ PO HS (Reported) Potassium Chloride ER (Potassium Chloride ER) 20 Meq Tablet.er 10 MEQ PO DAILY TAKE WITH FOOD Prescribed by: JESUS HOLLINGSWORTH MD Vit B Comp/C/FA/Iron/Vit E (Vitamin B Complex Tablet) 1 Each Tablet 1 EACH PO DAILY (Reported) As needed Albuterol HFA (Proair HFA) 8.5 Gm Hfa.aer.ad 2 PUFFS INHALATION Q4H PRN PRN For Shortness of Breath (Reported) Baclofen (Baclofen) 20 Mg Tablet 20 MG PO QID PRN PRN For Spasm (Reported) Calcium Carbonate (Tums) 500 Mg Tab.chew 500 MG PO PRN PRN PRN For Dyspepsia or Heartburn (Reported) Ibuprofen (Advil) 200 Mg Capsule 600 MG PO Q4H PRN PRN For Pain (Reported) Torsemide (Torsemide) 20 Mg Tablet 20 MG PO DAILY PRN PRN leg swelling Prescribed by: JESUS HOLLINGSWORTH MD Followup Plan Disposition: home Discharge Diet: Low fat, Low Sodium Discharge Activity: Limited until seen by PCP Patient Instructions # You were hospitalized due to altered mental status. It seems you fainted due to dehydration secondary to diuretics. I have stopped your torsemide and potassium supplement. Echocardiogram done did not show any heart failure. you do not need to take torsemide daily. You can take torsemide 20 mg by mouth together with potassium chloride 10meq as needed when you have leg swelling. Follow-up Provider: Justa Yeager MD Follow-up with PCP in: 1 week Time spent 35 minutes coordinating discharge and counseling on meds copies to: Justa Yeager MD, Melaku MD Jul 07, 2017 17:08
== END 2017-07-07 13:53 | disposition home or self-care (01) | DRG 640 ==
LOC: EDBD 09:37 → EDUNIT# 09:37 → SED 09:37 → MPC 15:29
PROVIDERS: ADMIT Internal Medicine; ATTEND Internal Medicine
DX: E87.1 Hypo-osmolality and hyponatremia (principal); G93.40 Encephalopathy, unspecified; Z68.41 Body mass index [BMI] 40.0-44.9, adult; E66.9 Obesity, unspecified; I10 Essential (primary) hypertension; J44.9 Chronic obstructive pulmonary disease, unspecified; G62.9 Polyneuropathy, unspecified; R32 Unspecified urinary incontinence; R41.0 Disorientation, unspecified; K21.9 Gastro-esophageal reflux disease without esophagitis; E86.0 Dehydration; F32.9 Major depressive disorder, single episode, unspecified; Z88.0 Allergy status to penicillin; Z79.51 Long term (current) use of inhaled steroids